=== PATIENT | male | born 1930 | race Caucasian/White ===

== ENCOUNTER 2017-04-07 09:21 | Emergency (ER) | payer OTHER ==
[~2017-04-07 09:21] MED LIST: AMARYL2 MG PO; ASPIRIN EC81 MG PO; CREON DR 6,0001 EACH PO; FLOMAX0.4 MG PO; HCTZ25 MG PO; LACTINEX1 EACH PO; LEVAQUIN500 MG PO; LEVOTHYROXINE50 MCG PO; METRONIDAZOLE500 MG PO; OPDIVO; PRILOSEC20 MG PO; XARELTO20 MG PO
== END 2017-04-07 10:24 | disposition home or self-care (01) ==
LOC: FER 09:21
DX: S40.021A Contusion of right upper arm, initial encounter (principal); S20.211A Contusion of right front wall of thorax, initial encounter; E11.9 Type 2 diabetes mellitus without complications; Z79.84 Long term (current) use of oral hypoglycemic drugs; W19.XXXA Unspecified fall, initial encounter
CPT/HCPCS: 73060; 99283